=== PATIENT | male | born 1955 | race Caucasian/White ===

== ENCOUNTER 2016-11-17 12:36 | Outpatient (CLI) | payer OTHER ==
[~2016-11-17 12:36] MED LIST: FINASTERIDE5 MG PO; HYCET1 ML PO; MIRALAX EQUIVAL17 GM PO; PERCOCET1 TA1 PO; POLYETHYLENE3350 MG; TAMSULOSIN HCL0.4 MG PO
--- NOTE | 2016-11-21 15:56 | DIAGNOSTIC IMAGING REPORT ---
PROCEDURE: 2 day sestamibi Interpretation CLINICAL INDICATION: Palpitations nausea TECHNIQUE: 30 mCi tech sestamibi injected 20 seconds after the injection Lexiscan with SPECT tomography performed next business day the patient return for a rest study of 30 mCi of tech sestamibi injected at rest with SPECT tomography performed rest and stress images were then compared. COMPARISON: None available FINDINGS: The left ventricle seemed to be normal in size. The left ventricle with stress exhibits no defects over the rest study no defects are apparent. Ventricular size function contractility is normal with an ejection fraction of 53% EDV 115 ESV 56 no t.i.d. seen IMPRESSION: Normal 2 day tech sestamibi study without evidence for fixed ischemic defects Ejection fraction 53% with normal contraction Stress portion of the test dictated separately by Internal
== END 2016-11-17 23:00 ==
LOC: RT SRH 12:36
PROC: 3E033HZ Introduction of Radioactive Substance into Peripheral Vein, Percutaneous Approach (ICD-10-PCS; principal; 2016-11-17)
PROC: 4A02XM4 Measurement of Cardiac Total Activity, External Approach (ICD-10-PCS; principal; 2016-11-17)
DX: R00.2 Palpitations (principal); R07.9 Chest pain, unspecified; R94.31 Abnormal electrocardiogram [ECG] [EKG]